=== PATIENT | male | born 1950 | race Caucasian/White ===

== ENCOUNTER 2021-12-23 13:54 | Emergency (ER) | payer MEDICARE, BC ==
[2021-12-23 14:18] VITALS: BP 134/74; PULSE 60
== END 2021-12-23 15:20 | disposition home or self-care (01) ==
LOC: JP.ED 13:54
DX: S80.862A Insect bite (nonvenomous), left lower leg, initial encounter (principal); I10 Essential (primary) hypertension; Z79.899 Other long term (current) drug therapy; W57.XXXA Bitten or stung by nonvenomous insect and other nonvenomous arthropods, initial encounter
CPT/HCPCS: 99282

== ENCOUNTER 2024-03-12 10:18 | Emergency (ER) | payer MEDICARE, BC ==
[2024-03-12 11:19] VITALS: BP 144/63; PULSE 50
[2024-03-12] MEDS: Lidocaine 1% 10 ML MDV INJECT ONE (12:53)
[2024-03-12] MEDS: Bacitracin Oint 1 GM U/D Packet TOP ONE (13:46)
== END 2024-03-12 13:53 | disposition home or self-care (01) ==
LOC: JP.ED 10:18
DX: S61.211A Laceration without foreign body of left index finger without damage to nail, initial encounter (principal); E78.00 Pure hypercholesterolemia, unspecified; I10 Essential (primary) hypertension; Z79.899 Other long term (current) drug therapy; W26.8XXA Contact with other sharp object(s), not elsewhere classified, initial encounter
CPT/HCPCS: 12002; 99282

== ENCOUNTER 2024-11-23 14:24 | Emergency (ER) | payer MEDICARE, BC ==
[2024-11-23 16:48] LABS: BASOPHILS ABSOLUTE AUTO 0.03 K/uL (0.00-0.10); BASOPHILS PERCENT AUTO 0.6 % (0.1-1.3); EOSINOPHILS ABSOLUTE AUTO 0.06 K/uL (0.00-0.40); EOSINOPHILS PERCENT AUTO 1.2 % (0.0-5.4); HEMATOCRIT 35.1 % (38.4-49.7); HEMOGLOBIN 12.4 g/dL (12.9-16.9); IMMATURE GRAN PERCENT AUTO 0.4 % (0.0-0.7); LYMPHOCYTES ABSOLUTE AUTO 1.65 K/uL (0.8-3.3); LYMPHOCYTES PERCENT AUTO 33.3 % (11.4-47.7); MEAN CORPUSCULAR HEMOGLOBIN 32.8 pg (31.6-35.5); MEAN CORPUSCULAR HGB CONC 35.3 g/dL (31.6-35.5); MEAN CORPUSCULAR VOLUME 92.9 fL (81.4-99.0); MONOCYTES ABSOLUTE AUTO 0.45 K/uL (0.20-0.90); MONOCYTES PERCENT AUTO 9.1 % (3.3-12.6); NEUTROPHILS ABSOLUTE AUTO 2.75 K/uL (1.0-7.6); NEUTROPHILS PERCENT AUTO 55.4 % (40.0-78.1); PLATELET COUNT,PLT 170 K/uL (130-375); RED BLOOD CELL COUNT 3.78 M/uL (4.14-5.76)
[2024-11-23 16:49] LABS: IMMATURE GRAN ABSOLUTE AUTO 0.02 K/uL (0.00-0.23)
[2024-11-23 17:08] LABS: A/G RATIO 1.1 (1.2-2.2); ALANINE AMINOTRANSFERASE,ALT 29 U/L (12-78); ALBUMIN 3.8 g/dL (3.4-5.0); ALKALINE PHOSPHATASE 44 U/L (46-116); ANION GAP 12.3 mmol/L (5.0-14.0); ASPARTATE AMNIOTRANSFERASE,AST 21 U/L (15-37); BILIRUBIN TOTAL 0.8 mg/dL (0.2-1.0); BLOOD UREA NITROGEN,BUN 21 mg/dL (7-18); CALCIUM 9.3 mg/dL (8.5-10.1); CARBON DIOXIDE,CO2 25 mmol/L (21-32); CHLORIDE,CL 104 mmol/L (100-108); CREATININE 1.2 mg/dL (0.8-1.3); EST CRCL DRUG DOSING (CG) 53.04 mL/min; ESTIMATED GFR 64 mL/min (>60); GLUCOSE RANDOM 101 mg/dL (74-106); POTASSIUM,K 4.1 mmol/L (3.6-5.2); PROTEIN TOTAL,TP 7.2 g/dL (6.4-8.2); SODIUM,NA 141 mmol/L (140-148)
[2024-11-23 17:16] LABS: APPEARANCE,URINE CLEAR (CLEAR); BILIRUBIN,URINE NEGATIVE (NEGATIVE); COLOR,URINE YELLOW (YELLOW); GLUCOSE,URINE NEGATIVE (NEGATIVE); KETONES,URINE NEGATIVE (NEGATIVE); LEUKOCYTE ESTERASE,URINE NEGATIVE (NEGATIVE); NITRITE,URINE NEGATIVE (NEGATIVE); OCCULT BLOOD,URINE TRACE-INTACT (NEGATIVE); PH,URINE 5.5 (5.0-8.0); PROTEIN,URINE NEGATIVE (NEGATIVE); UROBILINOGEN,URINE 0.2 EU/dL (0.2-1.0)
[2024-11-23 17:24] LABS: AMORPHOUS SEDIMENT,URINE RARE; BACTERIA,URINE NOT SEEN; EPITHELIAL CELLS,URINE NOT SEEN; MUCUS,URINE NOT SEEN; RBC,URINE NOT SEEN (0-5); WBC,URINE NOT SEEN (0-5)
[2024-11-23 17:27] VITALS: BP 135/66; PULSE 52
== END 2024-11-23 17:53 | disposition home or self-care (01) ==
LOC: JP.ED 14:24
DX: R10.12 Left upper quadrant pain (principal); I10 Essential (primary) hypertension; E78.00 Pure hypercholesterolemia, unspecified; Z91.018 Allergy to other foods; Z79.899 Other long term (current) drug therapy
CPT/HCPCS: 36415; 74018; 74018-26; 80053; 81001; 83605; 85025; 99284

== ENCOUNTER 2025-02-12 10:53 | Emergency (ER) | payer MEDICARE, BC ==
[2025-02-12 11:26] LABS: PLATELET COUNT,PLT 221 K/uL (130-375); RED BLOOD CELL COUNT 3.88 M/uL (4.14-5.76); WHITE BLOOD CELL COUNT,WBC 4.1 K/uL (3.2-11.0)
[2025-02-12 11:50] LABS: BLOOD UREA NITROGEN,BUN 25.0 mg/dL (7-18); CARBON DIOXIDE,CO2 29.0 mmol/L (21-32); CHLORIDE,CL 103.0 mmol/L (100-108); CREATININE 1.5 mg/dL (0.8-1.3); EST CRCL DRUG DOSING (CG) 42.43 mL/min; ESTIMATED GFR 49.0 mL/min (>60); GLUCOSE RANDOM 114.0 mg/dL (74-106); POTASSIUM,K 5.2 mmol/L (3.6-5.2); SODIUM,NA 138.0 mmol/L (140-148); TROPONIN I HIGH SENSITIVITY 5.9 pg/mL (<=60.3)
[2025-02-12 11:52] LABS: EOSINOPHILS ABSOLUTE MAN 0.08 K/uL (0.00-0.40); EOSINOPHILS PERCENT MAN 2 % (2-4); LYMPHOCYTES ABSOLUTE MAN 0.86 K/uL (0.8-3.3); LYMPHOCYTES PERCENT MAN 21 % (24-44); MONOCYTES ABSOLUTE MAN 0.33 K/uL (0.20-0.90); MONOCYTES PERCENT MAN 8 % (2-6); NEUTROPHILS ABSOLUTE MAN 2.83 K/uL (1.0-7.6); SEG NEUTROPHILS PERCENT MAN 69 % (36-66)
[2025-02-12 11:55] VITALS: BP 150/82; PULSE 61
== END 2025-02-12 12:29 | disposition home or self-care (01) ==
LOC: JP.ED 10:53
DX: R07.89 Other chest pain (principal); E78.00 Pure hypercholesterolemia, unspecified; I10 Essential (primary) hypertension; Z91.018 Allergy to other foods; Z79.899 Other long term (current) drug therapy
CPT/HCPCS: 36415; 80048; 84484; 85025; 93005; 99285